=== PATIENT | female | born 1965 | race Caucasian/White ===

== ENCOUNTER → 2018-05-16 | Outpatient (CLI) | payer MEDICARE ==
[~2018-05-16] MED LIST: ALAVERT; AVONEX; AVONEX PEN30 MCG/0.5 IM; BACL10; Citalopram HBr40 MG PO; DIAZ2; ESCI5; ESTR2 PO; GABA300; HYDACE5; HYDCHL25 PO; LOSHYD; METO50ER PO; MIRT15 PO; Mobic7.5 MG PO; Norco 5-325 Ta1 EACH PO; ONDA4ODT MM; OXYACE5T PO; OXYACE7.5T PO; POTCHL10ER PO; Percocet 5-3251 EACH PO; Prednisone20 MG PO; RAMI5; ROPI1 PO; RXHYDACE PO; Ramipril10 MG PO; Ventolin/Prove6.7 GM INH
[2018-05-17 10:33] LABS: Candida species (DNA Probe) Negative (NEGATIVE); G. vaginalis (DNA Probe) Negative (NEGATIVE); T. vaginalis (DNA Probe) Negative (NEGATIVE)
== END | disposition home or self-care (01) ==
LOC: LAB SHORT 15:16 → LAB 15:16
PROVIDERS: Obstetrics & Gynecology
DX: N89.8 Other specified noninflammatory disorders of vagina (principal)
CPT/HCPCS: 87070; 87205; 87480; 87510; 87660

== ENCOUNTER → 2021-08-08 | Outpatient (CLI) | payer OTHER ==
[~2021-08-08] MED LIST changes: +ALLEGRA ALLERGY60 MG PO
== END | disposition home or self-care (01) ==
LOC: LAB SHORT 12:41 → PLD 12:41
DX: L72.9 Follicular cyst of the skin and subcutaneous tissue, unspecified (principal); M79.671 Pain in right foot; M19.079 Primary osteoarthritis, unspecified ankle and foot; R26.2 Difficulty in walking, not elsewhere classified
CPT/HCPCS: 88304

== ENCOUNTER 2022-12-25 14:23 | Observation (INO) | payer OTHER ==
[~2022-12-25] VITALS: Ht 162.6 cm; Wt 94.8 kg
[2022-12-25 15:50] LABS: Source, Urine Clean Catch
[2022-12-25 15:54] LABS: Albumin, Blood 3.9 g/dL (3.4-5.0); Bilirubin, Total 0.3 mg/dL (0.1-1.0); Bun/Creatinine Ratio 34.4 (12.0-20.0); Calcium, Blood 9.3 mg/dL (8.5-10.1); Creatinine, Blood 0.67 mg/dL (0.40-1.00); Globulin, Blood 3.8 g/dL (2.2-4.0); Potassium, Blood 3.8 mmol/L (3.5-5.5); Total Protein, Blood 7.7 g/dL (6.4-8.2)
[2022-12-25 15:57] LABS: BASOPHILS ABSOLUTE AUTO 0.04 K/mm3 (0.00-0.23); BASOPHILS PERCENT AUTO 1 % (0-2); EOSINOPHILS PERCENT AUTO 2 % (0-6); Hematocrit 41.4 % (33.0-51.0); IMMATURE GRAN ABSOLUTE AUTO 0.02 K/mm3 (0.00-0.10); IMMATURE GRAN PERCENT AUTO 0 % (0-1); LYMPHOCYTES ABSOLUTE AUTO 0.61 K/mm3 (0.84-5.20); LYMPHOCYTES PERCENT AUTO 13 % (21-46); MONOCYTES ABSOLUTE AUTO 0.53 K/mm3 (0.16-1.47); MONOCYTES PERCENT AUTO 11 % (4-13); Mean Corpuscular HGB 32.7 pg (26.0-34.0); Mean Corpuscular HGB Conc 36.2 g/dL (31.5-36.5); Mean Corpuscular Volume 90 fL (80-100); NEUTROPHILS ABSOLUTE AUTO 3.58 K/mm3 (1.96-9.15); NEUTROPHILS PERCENT AUTO 73 % (41-73); RDW Coefficient Variation 12.2 % (11.7-14.2); RDW Standard Deviation 40.1 fL (35.1-46.3); Red Blood Cell Count 4.59 M/mm3 (3.80-5.20); White Blood Cell Count 4.88 K/mm3 (4.00-11.30)
[2022-12-25 15:59] LABS: Appearance, Urine Clear (Clear); Bilirubin, Urine Neg (Neg); Blood, Urine Neg (Neg); Color, Urine Yellow (P-Yellow); Glucose Qualitative, Urine Neg (Neg); Ketones, Urine Neg (Neg); Leukocyte Esterase, Urine Neg (Neg); Nitrite, Urine Neg (Neg); Protein, Urine Neg (Neg); Urobilinogen, Urine NORM (Normal)
[2022-12-25 16:14] LABS: Mean Platelet Volume 9.6 fL (9.1-12.4); Platelet Count 242 K/mm3 (150-400)
[2022-12-25 21:26] VITALS: BP 159/97
[2022-12-25] MEDS ORDERED: VUMERITY231 MG PO (21:38)
--- NOTE | 2022-12-25 22:02 | NUR ---
PT ARRIVED TO ROOM 227 FROM ER. PT A/O X4, VSS. PT REP PAIN TO RIGHT ABD, RADIATES TO BACK. PT C/O OCC N/V R/T PAIN. DR GASTON UPDATED ON PT ARRIVAL, NEW ORDERS REC. PLAN TO MONITOR AND TX PER ORDERS.
[2022-12-26] VITALS (20 sets, daily range): BP systolic 96–155; BP diastolic 55–98
--- NOTE | 2022-12-26 06:37 | NUR ---
PT VSS T/O NIGHT. PT REP PAIN BETTER CONTROLLED W/LOAF COUNTER AND PERCOCET, REP PAIN TAYLOR 5-6/10. PT C/O MILD NAUSEA, NO EMESIS, ZOFRAN GIVEN W/REP RELIEF. PT NPO POST MIDNIGHT, IVF CONT PER ORDERS. PT UP OOB W/SBA, TAYLOR WELL. DR GASTON CALLED IN THIS AM FOR UPDATE, PLAN FOR POSS SURGERY TODAY.
--- NOTE | 2022-12-26 12:48 | NUR ---
PT TO OR
--- NOTE | 2022-12-26 13:40 | NUR ---
12/26/22 1340 Cheryle Weldon NO PREOP ANTIBIOTICS ORDERED PER FERNANDA.
--- NOTE | 2022-12-26 16:16 | NUR ---
PT ARRIVED TO UNIT FROM PACU PAINFUL, RATING 10/10. CONNECTED TO [employer] DUMP OPERATOR PER ORDERS. PROVIDED WATER AND CRACKERS. LAP INCISIONS TO ABD SEALED WITH DERMABOND, CDI. CALL LIGHT IN REACH. MADE COPY AND GAVE PRESCRIPTION TO SPOUSE.
--- NOTE | 2022-12-26 17:14 | NUR ---
SUMMARY PT POD 0. LAP INCISIONS TO ABD SECURED WITH DERMABOND. CDI. VSS. CALL LIGHT IN REACH. TOLERATED SMALL AMOUNT OF PO INTAKE. NOW RESTING WITH LIGHTS OFF. AWAITING FIRST VOID POST SURGERY. CALL LIGHT IN REACH.
[2022-12-26 17:50] LABS: BASOPHILS ABSOLUTE AUTO 0.01 K/mm3 (0.00-0.23); BASOPHILS PERCENT AUTO 0 % (0-2); EOSINOPHILS ABSOLUTE AUTO 0.01 K/mm3 (0.00-0.68); EOSINOPHILS PERCENT AUTO 0 % (0-6); Hematocrit 38.6 % (33.0-51.0); Hemoglobin 13.8 g/dL (11.5-16.0); IMMATURE GRAN ABSOLUTE AUTO 0.02 K/mm3 (0.00-0.10); IMMATURE GRAN PERCENT AUTO 0 % (0-1); LYMPHOCYTES ABSOLUTE AUTO 0.31 K/mm3 (0.84-5.20); LYMPHOCYTES PERCENT AUTO 5 % (21-46); MONOCYTES PERCENT AUTO 2 % (4-13); Mean Corpuscular HGB 32.6 pg (26.0-34.0); Mean Corpuscular HGB Conc 35.8 g/dL (31.5-36.5); Mean Corpuscular Volume 91 fL (80-100); Mean Platelet Volume 9.1 fL (9.1-12.4); NEUTROPHILS ABSOLUTE AUTO 6.38 K/mm3 (1.96-9.15); NEUTROPHILS PERCENT AUTO 94 % (41-73); Platelet Count 200 K/mm3 (150-400); RDW Coefficient Variation 12.4 % (11.7-14.2); RDW Standard Deviation 41.1 fL (35.1-46.3); Red Blood Cell Count 4.23 M/mm3 (3.80-5.20); White Blood Cell Count 6.83 K/mm3 (4.00-11.30)
[2022-12-27 02:47] VITALS: BP 135/81
--- NOTE | 2022-12-27 05:01 | NUR ---
SHIFT SUMMARY POD 1 LAP BSO, X3 LAP SITES WITH JANEE YODER. C/D/I. PATIENT IS AOX4, ABLE TO AMBULATE SBA, VOIDING, DENIES PASSING GAS. TOLERATING PO INTAKE. MEDICATED FOR PAIN THIS SHIFT. VSS, CALL LIGHT IN REACH, WILL REPORT TO DAY RN.
[2022-12-27 07:35] VITALS: BP 143/89
--- NOTE | 2022-12-27 15:20 | NUR ---
DISCHARGE PT DISCHARGED HOME FROM UNIT AT APROX 1500. PT GIVEN WRITTEN AND VERBAL DC INSTRUCTION AND VERBALIZED UNDERSTANDING. IV REMOVED X'S 2. TOLERATED WELL. WC TO CAR. STATES HE ALREADY PICKED UP PT PAIN MEDICATION
== END 2022-12-27 15:22 | disposition home or self-care (01) ==
LOC: ER 14:23 → SURS 20:05 → MEDS 20:05 → SURS 21:16
PROVIDERS: Student in an Organized Health Care Education/Training Program; ADMIT Obstetrics & Gynecology
DX: D27.1 Benign neoplasm of left ovary (principal); D27.0 Benign neoplasm of right ovary; N83.8 Other noninflammatory disorders of ovary, fallopian tube and broad ligament; I10 Essential (primary) hypertension; Z88.8 Allergy status to other drugs, medicaments and biological substances; Z79.899 Other long term (current) drug therapy
CPT/HCPCS: 36415; 74177; 76830; 76856; 80053; 81003; 83690; 85025; 86304; 88305; 93005; 93010; 94762; 96361; 96374-59; 96375; 96375-59; 96376; 99285-25; A9270; G0378; J1100; J1885; J2250; J2371; J2405; J2704; J3010; J7120; Q9967

== ENCOUNTER 2023-05-21 04:29 | Day surgery (SDC) | payer OTHER ==
[~2023-05-21 04:29] MED LIST changes: +VUMERITY231 MG PO
[2023-05-21 07:38] VITALS: BP 105/83
[2023-05-21 09:05] VITALS: BP 126/95
[2023-05-21 09:32] VITALS: BP 120/74
[2023-05-21 12:44] VITALS: BP 91/67
[2023-05-21] MEDS ORDERED: PROG100 PO (12:45)
[2023-05-21] MEDS ORDERED: ESTRADIOL VAG (12:47)
[2023-05-21] MEDS ORDERED: THERA-D2000 UNIT PO (12:48)
[2023-05-21] MEDS ORDERED: CENTRUM SILVER1 EAC2 PO (12:48)
[2023-05-21] MEDS ORDERED: HAIR, SKIN AND1 EAC3 PO (12:49)
[2023-05-21] MEDS ORDERED: CALCIUM 600-VI1 EAC7 PO (12:49)
[2023-05-21 13:43] VITALS: BP 103/81
== END 2023-05-21 13:46 | disposition home or self-care (01) ==
LOC: ATC 04:29
DX: G35 Multiple sclerosis (principal); F32.A Depression, unspecified; I10 Essential (primary) hypertension; G47.30 Sleep apnea, unspecified; Z88.8 Allergy status to other drugs, medicaments and biological substances
CPT/HCPCS: 96365; 96366; 96375; A9270; J1200; J2930; J7050

== ENCOUNTER 2023-11-05 04:00 | Day surgery (SDC) | payer OTHER ==
[~2023-11-05 04:00] MED LIST changes: +CALCIUM 600-VI1 EAC7 PO; +CENTRUM SILVER1 EAC2 PO; +ESTRADIOL VAG; +HAIR, SKIN AND1 EAC3 PO; +PROG100 PO; +THERA-D2000 UNIT PO
[2023-11-05] MEDS ORDERED: UBLITUXIMAB-XIIY 450 MG in NS 232 ML IV SCH (06:00)
[2023-11-05] MEDS ORDERED: MethylPREDNISolone Sod Succ 125 MG Vial IV SCH (07:25)
[2023-11-05] MEDS ORDERED: DiphenhydrAMINE HCl 50 MG/ML 1ML Vial IV SCH (07:25)
[2023-11-05] MEDS ORDERED: Acetaminophen 325 MG TABLET PO PRN (07:25)
[2023-11-05 10:25] VITALS: BP 108/80
== END 2023-11-05 12:10 | disposition home or self-care (01) ==
LOC: ATC 04:00
DX: G35 Multiple sclerosis (principal); G47.30 Sleep apnea, unspecified; I10 Essential (primary) hypertension; F32.9 Major depressive disorder, single episode, unspecified; G25.81 Restless legs syndrome; Z88.8 Allergy status to other drugs, medicaments and biological substances
CPT/HCPCS: 96365; 96375; A9270; J1200; J2329; J2919; J7050

== ENCOUNTER 2024-04-22 04:11 | Day surgery (SDC) | payer OTHER ==
--- NOTE | 2024-04-21 13:09 | NUR ---
PT DID NOT SHOW THIS MORNING FOR HER APPOINTMENT IN THE [facility]. SHE HAS BEEN RESCHEDULED FOR TOMORROW MORNING.
[~2024-04-22 04:11] MED LIST changes: +Acetaminophen 325 MG TABLET PO SCH; +DiphenhydrAMINE HCl 50 MG/ML 1ML Vial IV SCH; +MethylPREDNISolone Sod Succ 125 MG Vial IV SCH; +[UNRECOGNIZED DRUG - OTHER] IV SCH
[2024-04-22] MEDS ORDERED: UBLITUXIMAB-XIIY 450 MG in NS 232 ML IV SCH (06:00)
[2024-04-22] MEDS ORDERED: DiphenhydrAMINE HCl 50 MG/ML 1ML Vial IV SCH (07:20)
[2024-04-22] MEDS ORDERED: Acetaminophen 325 MG TABLET PO SCH (07:20)
[2024-04-22] MEDS ORDERED: MethylPREDNISolone Sod Succ 125 MG Vial IV SCH (07:20)
[2024-04-22 08:05] VITALS: BP 109/89
== END 2024-04-22 10:40 | disposition home or self-care (01) ==
LOC: ATC 04:11
DX: G35 Multiple sclerosis (principal); I10 Essential (primary) hypertension; G25.81 Restless legs syndrome; Z79.899 Other long term (current) drug therapy; Z90.710 Acquired absence of both cervix and uterus
CPT/HCPCS: 96365; 96375; A9270; J1200; J2329; J7050

== ENCOUNTER 2025-04-06 00:09 | Day surgery (SDC) | payer OTHER ==
[~2025-04-06 00:09] MED LIST changes: -Acetaminophen 325 MG TABLET PO SCH; +BRINTELLIX10 MG PO; +CONSTULOSE10 GM/155 PO; +CYMBALTA30 M2 PO; -DiphenhydrAMINE HCl 50 MG/ML 1ML Vial IV SCH; +GLYC2 PO; +LEVOCETIRIZINE D5 MG PO; -MethylPREDNISolone Sod Succ 125 MG Vial IV SCH; +VEOZAH45 MG PO; +ZOLPIDEM TART12.5 MG PO; -[UNRECOGNIZED DRUG - OTHER] IV SCH
[2025-04-06] MEDS ORDERED: DiphenhydrAMINE HCl 50 MG/ML 1ML Vial IV SCH (06:00)
[2025-04-06] MEDS ORDERED: UBLITUXIMAB-XIIY 450 MG in NS 232 ML IV SCH (06:00)
[2025-04-06 07:16] VITALS: BP 111/82
[2025-04-06 08:35] VITALS: BP 107/77
== END 2025-04-06 09:10 | disposition home or self-care (01) ==
LOC: ATC 00:09
DX: G35.D Multiple sclerosis, unspecified (principal); I10 Essential (primary) hypertension; G47.30 Sleep apnea, unspecified; M19.90 Unspecified osteoarthritis, unspecified site; G25.81 Restless legs syndrome; Z79.899 Other long term (current) drug therapy; Z88.8 Allergy status to other drugs, medicaments and biological substances; M79.89 Other specified soft tissue disorders
CPT/HCPCS: 76882; 96365; 96375; A9270; J1200; J2329; J2919; J7050